=== PATIENT | female | born 1985 | race African-American/Black ===

== ENCOUNTER 2016-08-27 17:57 | Inpatient (IN) | payer BC ==
[2016-08-27] MEDS ORDERED: BUTORPHANOL 1 MG/ML VIAL IV PRN (18:31)
[2016-08-27] MEDS ORDERED: LR 500 ML IV PRN (18:31)
[2016-08-27 18:47] LABS: AUTOMATED BASOPHIL 0.2 % (0-2); AUTOMATED EOSINOPHIL 0.6 % (0-5); AUTOMATED LYMPH 15.5 % (17-44); AUTOMATED NEUTROPHIL 68.7 % (45-76); MPV 10.5 fL (7.4-10.4)
[2016-08-27] MEDS ORDERED: Vaccine Screening Complete SCH (19:00)
[2016-08-27] MEDS ORDERED: AMPICILLIN 2 GM in NS 100 ML IV ONE (19:00)
[2016-08-27] MEDS ORDERED: LR 1,000 ML IV SCH (19:00)
[2016-08-27] MEDS ORDERED: LIDOCAINE 1% 30 ML VIAL (PRESERVATIVE FREE) ONE (19:05)
[2016-08-27] MEDS ORDERED: OXYTOCIN 1,000 ML IV ONE ×2 (19:05→21:00)
[2016-08-27 19:27] VITALS: BMI 36.4
--- NOTE | 2016-08-27 19:27 | HISTPHYS ---
- HISTORY OF PRESENT ILLNESS Age: 31 Estimated Due Date: 08/27/16 Gestational Age: 40 : 1 Para: 0 Patient Presents to:: Labor & Delivery Presents for:: Contractions, Labor Current : No Complications, GBS + - REVIEW OF SYSTEMS Reports/Denies: Reports: Contractions Pain: Reports: Abdominal - ALLERGIES Allergies Allergy/AdvReac Type Severity Reaction Status Date / Time No Known Allergies Allergy Verified 08/27/16 18:21 - PAST MEDICAL HISTORY Reports: No Significant History - PAST SURGICAL HISTORY Reports: None - FAMILY HISTORY Family History: Noncontributory - SOCIAL HISTORY Travel Outside of [place] in the Last 3 Months?: No - PHYSICAL EXAM Vital Signs:: Temperature: 97.9 F (08/27/16 18:23) HR: 120 (08/27/16 18:23) RR: 20 (08/27/16 18:23) BP: 138/85 (08/27/16 18:23) Pulse Ox: () GENERAL: Alert, Oriented, No Acute Distress HEENT: Normal CARDOVASCULAR/CHEST: Normal RESPIRATORY: Normal - CTA ABDOMEN: Gravid, Non-Tender Fundal Height (cm): 40 GENITOURINARY: Normal. negative: Lesions MUSCULOSKELETAL: Normal EXTERMITIES: Moves All Extremeties. negative: Edema Dilation (cm): 7 Effacement (%): 100 Station: -2 Heart Rate: 154 Moderate Variability Contractions: Regular Membranes: AROM Amniotic Fluid: Clear - ASSESSMENT (ACTIVE PROBLEMS) (1) Term Acute Z34.80 - ENCOUNTER FOR SUPRVSN OF NORMAL , UNSP TRIMESTER (2) Active labor at term Acute [id number] - - PLAN Admit Other Plan: 31 yo G1 at term presents in active labor. Routine care. Admit, arom, expect vaginal delivery. EFW 8lbs.
[2016-08-27] MEDS ORDERED: SODIUM CHLORIDE 0.9% 3 ML FLUSH FLUSH PRN (21:00)
[2016-08-27] MEDS ORDERED: HYDROCORTISONE 25 MG SUPP PR PRN (21:00)
[2016-08-27] MEDS ORDERED: LANOLIN OINTMENT 0.25 OZ TUBE TOP PRN (21:00)
[2016-08-27] MEDS ORDERED: OXYCODONE HCL 5 MG TABLET PO PRN ×2 (21:00)
[2016-08-27] MEDS ORDERED: DIBUCAINE OINTMENT 1 OZ TUBE TOP PRN (21:00)
[2016-08-27] MEDS ORDERED: Pharmacy Order Set Alert SCH (21:00)
[2016-08-27] MEDS ORDERED: ZOLPIDEM TARTRATE 5 MG TAB PO PRN (21:00)
--- NOTE | 2016-08-27 21:02 | OBDELNOTE ---
Delivery Note - Problem/Diagnosis (1) Term Status: Acute (2) Active labor at term Status: Acute (3) Single live Status: Acute (4) Vaginal delivery Status: Acute - Admitting Diagnosis Reason for Visit: Contractions Admission Date: 08/27/16 Admission time: 18:05 Gestational Age: 40 Labor Anesthesia/Analgesia: None Date: 08/27/16 Spontaneous Vaginal Delivery Presentation: Vertex Episiotomy: None Laceration: 2nd Degree Perineal Repair Agent: 2-0 Chromic EBL: 200 Fluid: Clear Placenta: Spontaneous Description: Normal Cord: 3 Vessels - Procedures Procedures: None - Infant Data Infant Sex: Female Weight: 3.43 kg (1min): 9 (5min): 9 Feeding Plans for Infant: Breast Plans Circumcision: No Complications: No Complications [place] to:: LDRP/Mother's Room - /Operative Complications /Op Complications: None Discharge Planning - REASON FOR ADMISSION Patient Presents to:: Labor & Delivery Reason for Visit: Contractions, Labor - DISCHARGE INSTRUCTIONS
--- NOTE | 2016-08-27 21:03 | PCM.DCS92 ---
<Shaniqua Carias - Last Filed: 08/27/16 21:02> - Primary/Secondary Discharge Diagnoses (1) Term Acute Z34.80 - ENCOUNTER FOR SUPRVSN OF NORMAL , UNSP TRIMESTER (2) Active labor at term Acute [id number] - (3) Single live Acute Z37.0 - SINGLE LIVE (4) Vaginal delivery Acute O80 - ENCOUNTER FOR FULL-TERM UNCOMPLICATED DELIVERY - HOSPITAL COURSE /Op Complications: None - DISCHARGE INSTRUCTIONS Discharge Disposition: Home Discharge Condition: Good Cognitive Discharge Status: Unimpaired Fuctional Discharge Status: Independent Patient Leaving with Prescriptions?: Yes Home Medications/ New Prescriptions: New Hydrocodone Bit/Acetaminophen [Hydrocodon-Acetaminophen 5-325] 1 - 2 tab PO Q4H PRN #30 tab PRN Reason: Pain Ibuprofen Tablet [Motrin] 800 mg PO TID #30 tab Continue Vits W-Ca,Fe,FA(<1Mg) [] 1 each PO DAILY - Diet Diet at Discharge: Regular - Activity Activity: Pelvic Rest, No Driving No Driving for: 2 weeks - Instructions Call Physician for: Sudden/Sever Chest Pain, Foul Smelling Discharge, Pain/ Redness in Calf/Leg, Temperature Above 100.4 - DC Summary Notes Discharge Medications: *See "Discharge Medication List" for a complete list of Home Medications and Discharge Medications.* Obstetric Hospital Course - Admitting Diagnosis Reason for Visit: Contractions Admission Date: 08/27/16 Admission time: 18:05 Gestational Age: 40 Labor Anesthesia/Analgesia: None Date: 08/27/16 Spontaneous Vaginal Delivery Presentation: Vertex Episiotomy: None Laceration: 2nd Degree Perineal Repair Agent: 2-0 Chromic EBL: 200 Fluid: Clear Placenta: Spontaneous Description: Normal Cord: 3 Vessels - Procedures Procedures: None - Data Sex: Female Weight: 3.43 kg (1min): 9 (5min): 9 Feeding Plans for : Breast Plans Circumcision: No [place] Complications: No Complications to:: LDRP/Mother's Room - /Operative Complications /Op Complications: None <Safia Calloway - Last Filed: 08/29/16 07:41> - Primary/Secondary Discharge Diagnoses (1) care following vaginal delivery Acute Z39.2 - ENCOUNTER FOR ROUTINE FOLLOW-UP - DC Summary Notes Discharge Medications: *See "Discharge Medication List" for a complete list of Home Medications and Discharge Medications.*
[2016-08-27] MEDS: IBUPROFEN 800 MG TAB PO SCH (21:23)
[2016-08-27] MEDS ORDERED: AMPICILLIN 1 GM in NS 100 ML IV SCH (23:00)
[2016-08-27] MEDS: Docusate Sodium 100 MG CAP PO SCH (23:59)
[2016-08-28] MEDS: IBUPROFEN 800 MG TAB PO SCH ×4 (03:37→22:29)
[2016-08-28] MEDS ORDERED: LR 1,000 ML IV SCH (04:00)
[2016-08-28] MEDS ORDERED: SODIUM CHLORIDE 0.9% 3 ML FLUSH FLUSH SCH (06:00)
--- NOTE | 2016-08-28 09:26 | OBGYNPROG ---
- Subjective Post Day: 1 Reports: Ambulating, Out of Bed, Tolerating Regular Diet, Voiding Freely. Denies: Complaints Pain: Reports: None - Objective Vital Signs: Temperature: 98.3 F (08/28/16 05:38) HR: 112 (08/28/16 05:38) RR: 18 (08/28/16 05:38) BP: 129/75 (08/28/16 05:38) Pulse Ox: () Laboratory Results - last 24 hr 08/27/16 08/27/16 08/28/16 18:40 18:40 06:11 WBC 11.1 H RBC 4.40 Hgb 12.0 10.8 L Hct 36.6 33.1 L MCV 83 MCH 27.2 MCHC 32.7 L RDW 15.2 H Plt Count 173 MPV 10.5 H Neut % (Auto) 68.7 Lymph % (Auto) 15.5 L [place] % (Auto) 15.0 H Eos % (Auto) 0.6 Baso % (Auto) 0.2 Absolute Neuts (auto) 7.55 Absolute Lymphs (auto) 1.67 Blood Type A POSITIVE General: Alert, Oriented, No Acute Distress HEENT: Normal Cardiovascular/Chest: Normal ABDOMEN: Soft MUSCULOSKELETAL: Normal EXTERMITIES: Moves All Extremeties. Denies: Edema OBGYN Progress Note - ASSESSMENT (1) Term Status: Acute Code(s): Z34.80 - ENCOUNTER FOR SUPRVSN OF NORMAL , UNSP TRIMESTER (2) Active labor at term Status: Acute Code(s): [id number] - (3) Single live Status: Acute Code(s): Z37.0 - SINGLE LIVE (4) Vaginal delivery Status: Acute Code(s): O80 - ENCOUNTER FOR FULL-TERM UNCOMPLICATED DELIVERY - PLAN Routine Care
[2016-08-28] MEDS: Docusate Sodium 100 MG CAP PO SCH (22:29)
[2016-08-29] MEDS: IBUPROFEN 800 MG TAB PO SCH ×2 (06:15→17:16)
--- NOTE | 2016-08-29 07:39 | OBGYNPROG ---
- Subjective Post Day: 2 Reports: Ambulating, Out of Bed, Tolerating Regular Diet, Voiding Freely, Passing Flatus, Moderate Lochia. Denies: Nausea, Vomitting, Chest Pain, Shortness of Breath Pain: Reports: Well Managed Is having difficulty with - Objective Vital Signs: Last Vital Signs Temp 98.2 F 08/29/16 06:33 Pulse 91 08/29/16 06:33 Resp 18 08/29/16 06:33 BP 118/57 L 08/29/16 06:33 Pulse Ox General: Alert, Oriented, No Acute Distress ABDOMEN: Non-Distended, Non-Tender, Soft Fundus: U - 1, Firm Bladder: Voiding & Emptying OBGYN Progress Note - ASSESSMENT (1) care following vaginal delivery Status: Acute Code(s): Z39.2 - ENCOUNTER FOR ROUTINE FOLLOW-UP - PLAN Routine Care, Consult After consult will discharge home
[2016-08-29 17:43] VITALS: BP 134/86; PULSE 108; TEMP 98.5
== END 2016-08-29 20:45 | disposition home or self-care (01) | DRG 775 ==
LOC: LD 17:57 → MASU 18:24
PROVIDERS: ADMIT Obstetrics & Gynecology; ATTEND Obstetrics & Gynecology
PROC: 10E0XZZ Delivery of Products of Conception, External Approach (ICD-10-PCS; principal; 2016-08-27)
PROC: 0KQM0ZZ Repair Perineum Muscle, Open Approach (ICD-10-PCS; 2016-08-27)
DX: O70.1 Second degree perineal laceration during delivery (principal); Z37.0 Single live birth; Z3A.40 40 weeks gestation of pregnancy
CPT/HCPCS: 59400; 85014; 85018; 85025; 86592; 86900; 86901; 87491; 87591; 96361; 96365; 96366; J0290; J2001; J2590; J3490; J7030